=== PATIENT | male | born 1965 | race Caucasian/White ===

== ENCOUNTER 2018-07-08 05:35 | Day surgery (SDC) | payer OTHER ==
[2018-07-08] MEDS ORDERED: LACTATED RINGER'S 1,000 ML IV (07:00)
[2018-07-08] MEDS ORDERED: PROPOFOL 20 ML (07:07)
[2018-07-08] MEDS ORDERED: LIDOCAINE 2% (SDV) 5 ML INJ (07:07)
[2018-07-08] MEDS ORDERED: CEFAZOLIN 1 GM INJ (07:07)
[2018-07-08] MEDS ORDERED: MIDAZOLAM 1 MG/ML 2 ML INJ (07:08)
[2018-07-08] MEDS ORDERED: HYDROmorphONE 2 MG/ML SYG (07:08)
[2018-07-08] MEDS: EPINEPHrine 1 MG/ML 30 ML INJ ZFS ×2 (07:30→08:02)
[2018-07-08] MEDS: CEFAZOLIN 2 GM/50 ML (PMX) 50 ML IVPB (07:45)
[2018-07-08] MEDS ORDERED: FAMOTIDINE 20 MG INJ (07:52)
[2018-07-08] MEDS ORDERED: DEXAMETHASONE 4 MG/ML 5 ML INJ (07:52)
[2018-07-08] MEDS ORDERED: ONDANSETRON 4 MG INJ (07:52)
[2018-07-08] MEDS ORDERED: EPHEDrine 25 MG/5 ML SYG (07:53)
[2018-07-08] MEDS ORDERED: KETOROLAC 30 MG INJ (08:21)
[2018-07-08] MEDS ORDERED: MEPERIDINE 25 MG INJ IV (08:30)
[2018-07-08] MEDS ORDERED: HYDROmorphONE 1 MG/5 ML IV SYRINGE IV ×3 (08:30→09:16)
[2018-07-08] MEDS ORDERED: MIDAZOLAM 1 MG/ML 2 ML INJ IV (08:30)
[2018-07-08] MEDS ORDERED: OXYCODONE/ACETAMINOPHEN (5/325) TAB PO (08:30)
[2018-07-08] MEDS ORDERED: ONDANSETRON 4 MG INJ IV (08:30)
[2018-07-08] MEDS ORDERED: morphine SULFATE/PF (10 MG/10 ML) INJ (08:51)
[2018-07-08] MEDS: HYDROmorphONE 1 MG/5 ML IV SYRINGE IV ×3 (09:29→09:47)
[2018-07-08] MEDS: OXYCODONE/ACETAMINOPHEN (5/325) TAB PO (09:30)
[2018-07-08] MEDS: GABAPENTIN 300 MG CAP PO (09:54)
== END 2018-07-08 11:07 | disposition home or self-care (01) ==
LOC: SDS 05:35
DX: S83.242A Other tear of medial meniscus, current injury, left knee, initial encounter (principal); S83.282A Other tear of lateral meniscus, current injury, left knee, initial encounter; M65.862 Other synovitis and tenosynovitis, left lower leg; M67.52 Plica syndrome, left knee; E78.5 Hyperlipidemia, unspecified; E66.9 Obesity, unspecified; X58.XXXA Exposure to other specified factors, initial encounter; Y92.89 Other specified places as the place of occurrence of the external cause; Y93.89 Activity, other specified; Y99.8 Other external cause status
CPT/HCPCS: 29879

== ENCOUNTER 2018-07-15 16:04 | Emergency (ER) | payer SELFPAY, OTHER | END 2018-07-15 16:46 | disposition left against medical advice (07) | LOC: E/R 16:04 | DX: Z53.21 Procedure and treatment not carried out due to patient leaving prior to being seen by health care provider (principal) ==

== ENCOUNTER 2018-09-19 10:33 | Day surgery (SDC) | payer OTHER ==
[2018-09-19] MEDS ORDERED: MIDAZOLAM 1 MG/ML 2 ML INJ (11:52)
[2018-09-19] MEDS ORDERED: PROPOFOL 20 ML (11:52)
[2018-09-19] MEDS ORDERED: ONDANSETRON 4 MG INJ (11:52)
[2018-09-19] MEDS ORDERED: KETOROLAC 30 MG INJ (11:52)
[2018-09-19] MEDS ORDERED: OXYCODONE/ACETAMINOPHEN (5/325) TAB PO (12:00)
[2018-09-19] MEDS ORDERED: ONDANSETRON 4 MG INJ IV (12:00)
[2018-09-19] MEDS ORDERED: HYDROmorphONE 1 MG/5 ML IV SYRINGE IV (12:00)
[2018-09-19] MEDS: CEFTRIAXONE 1 GM/50 ML (PMX) 50 ML IVPB (12:05)
[2018-09-19] MEDS ORDERED: IOHEXOL 300MG/ML 30 ML BTL (12:11)
[2018-09-19] MEDS: FENTAnyl 50 MCG/ML VIAL IV ×4 (13:15→13:52)
[2018-09-19] MEDS ORDERED: HYDROCODONE/APAP (5/325) TAB PO (13:30)
== END 2018-09-19 14:15 | disposition home or self-care (01) ==
LOC: SDS 10:33
DX: N20.1 Calculus of ureter (principal)
CPT/HCPCS: 52356; 74430; 87086; 88300